=== PATIENT | male | born 1995 | race Caucasian/White ===

== ENCOUNTER 2023-01-02 00:42 | Emergency (ER) | payer SELFPAY ==
[2023-01-02 00:49] VITALS: BP 138/85; PULSE 66; RESP 18; TEMP 36.5; O2SAT 98
--- NOTE | 2023-01-02 00:50 | ED.DENTAL ---
HPI - Dental/Oral General Chief complaint: Dental/Oral Stated complaint: dental pain Source: patient Mode of arrival: ambulatory Limitations: no limitations History of Present Illness HPI Narrative: 27-year-old male with no significant past medical history presents to the ER with -- left lower dental pain the past few days. He also complains of jaw pain. No fever. MD Complaint: tooth pain Location: Tooth # ( Seventeen, 19-- carious with fractured crowns. partially fractured 1 and 16) Onset (ago): week(s) Duration: constant Severity: severe Relieving factors: nothing Exacerbating factors: cold Context: history of dental caries Treatment prior to arrival: none Related Data Allergies Allergy/AdvReac Type Severity Reaction Status Date / Time No Known Allergies Allergy Verified 01/02/23 00:56 Review of Systems Review of Systems: All systems reviewed & are unremarkable except as noted in HPI and below Constitutional: Constitutional: Reports as per HPI and Reports no additional constitutional complaints Eyes: Eyes: Reports as per HPI and Reports no additional eye complaints ENT: Reports system reviewed and no additional complaints, except as documented and Reports as per HPI Comments: dental pain left lower Cardiovascular: Cardiovascular: Reports as per HPI and Reports no additional cardiovascular complaints Respiratory: Respiratory: Reports as per HPI and Reports no additional respiratory complaints Gastrointestinal: Gastrointestinal: Reports as per HPI and Reports no additional gastrointestinal complaints Genitourinary: Genitourinary: Reports no additional male genitourinary complaints Musculoskeletal: Musculoskeletal: Reports no additional musculoskeletal complaints Integumentary/Breasts: Skin/Breast: Reports system reviewed and no additional complaints, except as docu and Reports as per HPI Neurologic: Reports system reviewed and no additional complaints, except as documented and Reports as per HPI Psychiatric: Psychiatric: Reports no additional psychiatric complaints and Reports as per HPI Endocrine: Endocrine: Reports no additional endocrine complaints and Reports as per HPI Hematologic/Lymphatic: Hematologic/Lymphatic: Reports no additional hematologic/lymphatic complaints and Reports as per HPI Allergic/Immunologic: Allergic/Immunologic: Reports no additional allergic/immunologic complaints and Reports as per HPI PMFSH Past Medical History Medical History (Updated 01/02/23 @ 00:59 by Willy Mccormick MD) Dental caries Exam Const: General: no acute distress Nutritional Appearance: well nourished Orientation/consciousness: patient oriented x3 Limitations: no limitations HENMT: Head: normal to inspection Ears: external ears normal Face/Nose/Sinus: Normal external nose present Face and sinus: normal facial exam Mouth: Yes Normal oral and palatal mucosa present Teeth and gingiva: dentition normal ( extensive dental caries. 17. And 19 a carious with fractured crowns) and abnormal tooth and associated gingiva ( extensive dental caries) Throat: posterior oropharynx normal Eyes: Conjunctivae: conjunctivae normal Pupils: Equal, round and reactive pupils present EOM: EOMs intact bilaterally Direct Ophthalmoscopy: no photophobia Neck: Neck: normal visual inspection, no lymphadenopathy and no meningeal signs Chest: Chest palpation & inspection: normal inspection of the chest Resp: Effort & Inspection: normal respiratory effort Auscultation: clear to auscultation bilaterally Cardio: Rate: regular rate Rhythm: regular rhythm GI: Auscultation: normal bowel sounds Rectal Exam: normal sphincter tone : General: Yes no CVA tenderness Back/Spine/Pelvis: Back: no CVA tenderness Skin: General skin exam: normal color Rashes: no rashes Wounds: no wounds Neuro: General: patient oriented x3, moves all extremities, no meningeal signs, no focal motor deficits and CN's II-XI intact bilate
[2023-01-02] MEDS: CLINDAMYCIN HCL 150 MG CAP 300 MG PO (01:12)
[2023-01-02] MEDS: HYDROcodone/acetaminophen (*CRX) 5-325 MG TABLET 1 TAB PO (01:14)
== END 2023-01-02 01:33 | disposition home or self-care (01) ==
LOC: CHSED 01:11
PROVIDERS: Emergency Provider Internal Medicine Critical Care Medicine
DX: K02.9 Dental caries, unspecified (principal)
CPT/HCPCS: 99283; A9270

== ENCOUNTER 2024-10-19 23:00 | Emergency (ER) | payer SELFPAY ==
[2024-10-19 23:00] VITALS: BP 127/87; PULSE 89; RESP 18; TEMP 37.3; O2SAT 98
--- NOTE | 2024-10-19 23:24 | ED.SKABFB ---
HPI - Skin/Abscess/Foreign Bdy General Chief complaint: Skin/Abscess/Foreign Body Stated complaint: spider bite Time Seen by Provider: 10/19/24 23:04 Source: patient Mode of arrival: ambulatory Limitations: no limitations History of Present Illness HPI narrative: PATIENT SLIPPED OUTDOORS 3 DAYS AGO, POSSIBLE SPIDER BITE AT THE RIGHT AXILLA, COMPLAINING OF REDNESS AND WARMTH SKIN AT THE MEDIAL SIDE OF THE RIGHT ARM. HE DENIES ANY FEVER OR CHILLS OR NAUSEA OR VOMITING. Related Data Allergies Allergy/AdvReac Type Severity Reaction Status Date / Time No Known Allergies Allergy Verified 10/19/24 23:05 Review of Systems Review of Systems: All systems reviewed & are unremarkable except as noted in HPI and below PMFSH Past Medical History Medical History Dental caries Exam Narrative: GENERAL APPEARANCE: WELL-DEVELOPED, WELL-NOURISHED SKIN: RIGHT AXILLA SHOWED 3 X 4 MM YELLOWISH SPOT , NO DISCHARGE, NO FLUCTUATION, WARM ERYTHEMATOUS CHANGES AT THE MEDIAL SIDE OF THE RIGHT ARM A. 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, NO GROSS MOTOR DEFICIT Course Vital Signs Vital signs: Vital Signs Temperature 37.3 C 10/19/24 23:00 Pulse Rate 89 10/19/24 23:00 Respiratory Rate 18 10/19/24 23:00 Blood Pressure 127/87 10/19/24 23:00 Pulse Oximetry 98 10/19/24 23:00 Oxygen Delivery Room Air 10/19/24 23:00 Temperature 37.3 C 10/19/24 23:00 Pulse Rate 89 10/19/24 23:00 Respiratory Rate 18 10/19/24 23:00 Blood Pressure 127/87 10/19/24 23:00 Pulse Oximetry 98 10/19/24 23:00 Oxygen Delivery Room Air 10/19/24 23:00 MDM - Skin/Abscess/Foreign Bdy MDM Narrative Medical decision making narrative: INSECT BITE WITH SECONDARY BACTERIAL INFECTION IS MY CONCERN DISCHARGED ON KEFLEX, TYLENOL AND IBUPROFEN Differential Diagnosis Differential diagnosis: Likely abscess of skin or subcutaneous tissue, cellulitis and insect bites Critical Care Time Critical Care Time Critical Care Time: No Discharge Plan Discharge Clinical Impression: Insect bite, Cellulitis Patient Disposition: Home Condition: Stable Instructions: Antibiotic Form, Cellulitis (ED), Insect Bite or Sting (ED) Additional Instructions: RETURN IF SYMPTOMS ARE WORSENING , CALL YOUR FAMILY PHYSICIAN FOR APPOINTMENT, TAKE TYLENOL, IBUPROFEN NEEDED FOR ACHES AND PAIN, CONTINUE HOME MEDICATIONS. Patient Language: Kinyarwanda Prescriptions: New cephalexin 500 mg capsule 500 mg PO Q6H 10 Days Qty: 40 0RF No Action clindamycin HCl 300 mg capsule 300 mg PO Q8H Qty: 20 0RF Follow-up/Referrals: UNKNOWN,DOCTOR [Non-Staff] Stand Alone Forms: Work/School Release IP
[2024-10-19] MEDS: CEPHALEXIN 500 MG CAPSULE PO (23:30)
== END 2024-10-19 23:33 | disposition home or self-care (01) ==
LOC: CHSED 23:29
PROVIDERS: Emergency Provider Emergency Medicine; PCP Family Medicine
DX: S40.861A Insect bite (nonvenomous) of right upper arm, initial encounter (principal); L03.111 Cellulitis of right axilla; W57.XXXA Bitten or stung by nonvenomous insect and other nonvenomous arthropods, initial encounter
CPT/HCPCS: 99283; A9270